=== PATIENT | male | born 1970 | race Caucasian/White ===

== ENCOUNTER 2021-06-12 07:37 | Emergency (ER) | payer OTHER ==
[~2021-06-12] VITALS: Ht 177.8 cm; Wt 115.7 kg
[2021-06-12 07:50] VITALS: BP_SYST 159
--- NOTE | 2021-06-12 07:50 | NUR ---
Pt to bed 6 for evaluation. Report given to SHERWIN Navarro who will assume care.
--- NOTE | 2021-06-12 07:50 | NUR ---
Pt AAO and ambulatory reporting left thumb swelling and discomfort X 1 week. Pt reports that swelling and discoloration has continued to worsen daily. Pt woke up this morning and pain increased to 9/10 on pain scale. Pt denies any prior medical history. Left thumb is noted to be blue/purple in color with a bubble present on finger nail/cuticle area.
--- NOTE | 2021-06-12 08:00 | NUR ---
Dr. Godinez at bedside to assess.
[2021-06-12] MEDS ORDERED: LIDOCAINE MPF 1% 50 MG/5 ML AMP INJ ONE (08:15)
--- NOTE | 2021-06-12 08:15 | NUR ---
SABINA PRITCHARD AT BEDSIDE, DR ELLISON IN ROOM FOR PROCEDURE. PT TOLERATING WELL.
[2021-06-12] MEDS ORDERED: CLINDAMYCIN HCL 150 MG CAPSULE PO ONE (08:30)
[2021-06-12] MEDS ORDERED: NAPR-688 PO (08:33)
[2021-06-12] MEDS ORDERED: CLIN300C12 PO (08:33)
--- NOTE | 2021-06-12 08:35 | NUR ---
MEDICATED ORDERED, WILL MONITOR FOR ANY ADVERSE SIDE EFFCTS
--- NOTE | 2021-06-12 09:15 | NUR ---
Patient given written and verbal discharge instructions and verbalizes understanding. ER MD discussed with patient the results and treatment provided. Patient in stable condition. ID arm band removed. Rx of CLINDAMYCIN, NAPROXEN given. Patient educated on pain management and to follow up with PMD. Pain Scale . Opportunity for questions provided and answered. Medication side effect fact sheet provided.
[2021-06-12 09:16] VITALS: BP_SYST 159
== END 2021-06-12 09:15 | disposition home or self-care (01) ==
LOC: SED 07:37
DX: L03.012 Cellulitis of left finger (principal); Z88.0 Allergy status to penicillin; Z79.899 Other long term (current) drug therapy
CPT/HCPCS: 99283

== ENCOUNTER 2022-07-29 09:01 | Emergency (ER) | payer BC, OTHER ==
[~2022-07-29] VITALS: Ht 177.8 cm; Wt 115.2 kg
[~2022-07-29 09:01] MED LIST: CLIN-142 PO; NAPR-688 PO
[2022-07-29 09:11] VITALS: BP_SYST 131
--- NOTE | 2022-07-29 09:39 | NUR ---
PT COMES IN ER WITH C/O HEADACHE FOR 1 WEEK, DENIES DIZZINESS, NO N/V/D. NO CHANGES IN VISION. RESP EVEN AND UNLABORED, ON RA @98%. SKIN W/D/I. DENIES CP OR SOB.
--- NOTE | 2022-07-29 10:09 | NUR ---
DR GOYAL IN ROOM FOR EXAM
[2022-07-29 10:35] LABS: BASOPHILS % (AUTO) 0.5 % (0.0-2.0); EOSINOPHILS # (AUTO) 0.1 K/uL (0.0-0.4); EOSINOPHILS % (AUTO) 1.1 % (0.0-4.0); HEMATOCRIT 49.5 % (36-54); HEMOGLOBIN 16.8 g/dL (14.0-18.0); LYMPHOCYTES # (AUTO) 1.9 K/uL (1.0-5.5); LYMPHOCYTES % (AUTO) 23.7 % (20.5-51.5); MEAN CORPUSCULAR HEMOGLOBIN 30 pg (27-31); MEAN CORPUSCULAR HGB CONC 34 % (32-36); MEAN CORPUSCULAR VOLUME 89 fL (79.0-98.0); MONOCYTES # (AUTO) 0.6 K/uL (0.0-1.0); MONOCYTES % (AUTO) 8.2 % (1.7-9.3); NEUTROPHILS # (AUTO) 5.3 K/uL (1.8-7.7); NEUTROPHILS % (AUTO) 66.5 % (40.0-70.0); PLATELET COUNT (AUTO) 252 K/uL (130-430); RED BLOOD CELL COUNT(AUTO) 5.55 MIL/uL (4.2-6.2); RED CELL DISTRIBUTION WIDTH 13.7 % (9.0-15.0); WHITE BLOOD COUNT (AUTO) 7.9 K/uL (4.8-10.8)
[2022-07-29 10:55] LABS: CALCIUM 9.1 mg/dL (8.4-11.0); CREATININE 0.91 mg/dL (0.55-1.30)
[2022-07-29 11:00] LABS: ALBUMIN 3.8 g/dL (3.4-4.8); TOTAL BILIRUBIN 0.7 mg/dL (0.0-1.0)
--- NOTE | 2022-07-29 12:14 | NUR ---
BROUGHT BACK TO BED #7 AND REPORT GIVEN TO YOLY
--- NOTE | 2022-07-29 12:27 | NUR ---
Patient given written and verbal discharge instructions and verbalizes understanding. ER MD discussed with patient the results and treatment provided. Patient in stable condition. ID arm band removed.
[2022-07-29 12:30] VITALS: BP_SYST 131
== END 2022-07-29 12:27 | disposition home or self-care (01) ==
LOC: SED 09:01
DX: U07.1 COVID-19 (principal); R55 Syncope and collapse; R42 Dizziness and giddiness; Z88.0 Allergy status to penicillin; Z79.899 Other long term (current) drug therapy
CPT/HCPCS: 36415; 71045; 80053; 85025; 93005; 99285